=== PATIENT | male | born 1955 | race Two or more races ===

== ENCOUNTER 2016-04-10 22:55 | Emergency (ER) | payer MEDICAID, OTHER ==
[~2016-04-10] VITALS: Ht 172.7 cm; Wt 99.8 kg
[2016-04-10 23:05] VITALS: BP 197/106
== END 2016-04-10 23:35 | disposition home or self-care (01) ==
LOC: ER 23:02
DX: J02.9 Acute pharyngitis, unspecified (principal); J06.9 Acute upper respiratory infection, unspecified; I10 Essential (primary) hypertension
CPT/HCPCS: 99281; A4606; Z7502; Z7610

== ENCOUNTER 2021-10-27 22:45 | Emergency (ER) | payer SELFPAY ==
[~2021-10-27] VITALS: Ht 162.6 cm; Wt 83.9 kg
[2021-10-27 23:00] VITALS: BP 145/94
[2021-10-27] MEDS ORDERED: PRED50TA PO ×2 (23:25→23:47)
[2021-10-27] MEDS ORDERED: CARI350T PO ×2 (23:25→23:47)
[2021-10-27] MEDS ORDERED: IBUP-1957 PO ×2 (23:25→23:47)
[2021-10-27] MEDS ORDERED: DEXAMETHASONE SOD PHOSPHATE 4 MG/ML VIAL IM ONE (23:30)
[2021-10-27] MEDS ORDERED: CARISOPRODOL 350 MG TABLET PO ONE (23:30)
[2021-10-27] MEDS ORDERED: DEXAMETHASONE SOD PHOSPHATE 10 MG/ML VIAL ONE (23:34)
[2021-10-27] MEDS ORDERED: CARISOPRODOL 350 MG TABLET ONE (23:34)
== END 2021-10-28 00:01 | disposition home or self-care (01) ==
LOC: ER 22:56
DX: M54.41 Lumbago with sciatica, right side (principal); I10 Essential (primary) hypertension; Z79.899 Other long term (current) drug therapy
CPT/HCPCS: 99283; 96372; J1100

== ENCOUNTER 2021-11-22 12:29 | Emergency (ER) | payer OTHER ==
[~2021-11-22] VITALS: Ht 160 cm; Wt 76.2 kg
[~2021-11-22 12:29] MED LIST: CARI350T PO; IBUP-1957 PO; PRED50TA PO
[2021-11-22] MEDS ORDERED: IBUP-1957 PO (12:44)
[2021-11-22] MEDS ORDERED: HYDR-3980 PO (12:44)
[2021-11-22] MEDS ORDERED: DEXAMETHASONE SOD PHOSPHATE 10 MG/ML VIAL ONE (12:51)
[2021-11-22] MEDS ORDERED: MORPHINE SULFATE INJ 4 MG/ML DISP.SYRIN ONE (12:52)
[2021-11-22] MEDS ORDERED: DEXAMETHASONE SOD PHOSPHATE 10 MG/ML VIAL IM ONE (13:00)
[2021-11-22] MEDS ORDERED: MORPHINE SULFATE INJ 2 MG/ML DISP.SYRIN IM ONE (13:00)
[2021-11-22 13:03] VITALS: BP 133/72
--- NOTE | 2021-11-22 13:03 | NUR ---
Patient discharged to home in stable condition. Written and verbal after care instructions given. Patient verbalizes understanding of instruction.
== END 2021-11-22 13:03 | disposition home or self-care (01) ==
LOC: ER 12:33
DX: M54.30 Sciatica, unspecified side (principal); I10 Essential (primary) hypertension; Z79.899 Other long term (current) drug therapy
CPT/HCPCS: 99284; 96372 ×2; J1100; J2270

== ENCOUNTER 2021-12-06 08:46 | Emergency (ER) | payer MEDICARE, OTHER ==
[~2021-12-06] VITALS: Ht 167.6 cm; Wt 79.4 kg
[~2021-12-06 08:46] MED LIST changes: +HYDR-3980 PO; +HYDR-4354 PO; +NEXIUM PO; +SUMA100T PO
[2021-12-06] MEDS ORDERED: KETOROLAC TROMETHAMINE INJ 30 MG/ML VIAL IM ONE (10:00)
[2021-12-06] MEDS ORDERED: HYDROCODONE/APAP 5/325MG TABLET PO ONE (10:00)
[2021-12-06] MEDS ORDERED: predniSONE 20 MG TABLET PO ONE (10:00)
[2021-12-06] MEDS ORDERED: CYCLOBENZAPRINE 10 MG TABLET PO ONE (10:00)
[2021-12-06] MEDS ORDERED: KETOROLAC TROMETHAMINE 15 MG/ML VIAL ONE (10:11)
[2021-12-06] MEDS ORDERED: predniSONE 20 MG TABLET ONE (10:11)
[2021-12-06] MEDS ORDERED: HYDROCODONE/APAP 5/325MG TABLET ONE (10:11)
[2021-12-06] MEDS ORDERED: CYCLOBENZAPRINE 10 MG TABLET ONE (10:12)
[2021-12-06] MEDS ORDERED: HYDR-4209 PO (10:46)
[2021-12-06] MEDS ORDERED: PRED20TA PO (10:46)
[2021-12-06] MEDS ORDERED: CYCL5TAB PO (10:46)
[2021-12-06 10:58] VITALS: BP 135/80
--- NOTE | 2021-12-06 10:58 | NUR ---
Patient discharged to home in stable condition, accompanied by son. Written and verbal after care instructions given. Patient verbalizes understanding of instruction.
== END 2021-12-06 10:59 | disposition home or self-care (01) ==
LOC: MERGE 08:53 → ER 08:53
DX: M54.42 Lumbago with sciatica, left side (principal); M54.41 Lumbago with sciatica, right side; G43.909 Migraine, unspecified, not intractable, without status migrainosus; Z98.890 Other specified postprocedural states; Z79.899 Other long term (current) drug therapy
CPT/HCPCS: 99284; 96372; J7512; J1885